=== PATIENT | female | born 1990 | race American Indian/Alaskan Native ===

== ENCOUNTER 2017-04-22 07:15 | Day surgery (SDC) | payer BC ==
[2017-04-22 07:50] VITALS: RESP 20
[2017-04-22] MEDS ORDERED: Propofol 10 mg/ml Inj (20 ML) ONE (09:46)
[2017-04-22] MEDS ORDERED: Lidocaine Hydrochloride 5 ML INJ ONE (09:47)
[2017-04-22] MEDS ORDERED: Lactated Ringer's 1,000 ML IV ONE (10:05)
[2017-04-22 11:47] VITALS: TEMP 97; O2SAT 100
[2017-04-22 11:56] VITALS: BP 120/80; PULSE 88
== END 2017-04-22 11:45 | disposition home or self-care (01) ==
LOC: C.ENDO 07:15
PROVIDERS: ATTEND Internal Medicine
DX: K59.09 Other constipation (principal); K92.1 Melena; K64.8 Other hemorrhoids; K63.5 Polyp of colon
CPT/HCPCS: 45380; 84703; 88305; J2704; J7120